=== PATIENT | male | born 1950 | race Two or more races ===

== ENCOUNTER 2022-05-16 06:55 | Day surgery (SDC) | payer OTHER ==
[~2022-05-16] VITALS: Ht 172.7 cm; Wt 104.3 kg
[~2022-05-16 06:55] MED LIST: ADULT LOW DOSE81 M1 PO; AMLODI PO; FARXIGA10 MG PO; LIPITOR40 MG PO; RAMIPRIL10 MG PO; TOPROL XL25 M1 PO
== END 2022-05-16 22:15 | disposition home or self-care (01) ==
LOC: CIR.AMB 06:55
PROVIDERS: ATTEND Colon & Rectal Surgery
DX: K60.3 Anal fistula (principal); K64.8 Other hemorrhoids; I10 Essential (primary) hypertension; E11.9 Type 2 diabetes mellitus without complications; Z79.82 Long term (current) use of aspirin; Z20.822 Contact with and (suspected) exposure to COVID-19

== ENCOUNTER 2022-05-16 07:49 | Emergency (ER) | payer OTHER ==
[~2022-05-16] VITALS: Ht 160 cm; Wt 77.1 kg
== END 2022-05-16 13:30 ==
LOC: ER 07:49
DX: R55 Syncope and collapse (principal); E86.0 Dehydration; Z20.822 Contact with and (suspected) exposure to COVID-19

== ENCOUNTER 2022-10-03 08:23 | Day surgery (SDC) | payer OTHER ==
[~2022-10-03] VITALS: Ht 172.7 cm; Wt 108.9 kg
== END 2022-10-03 16:30 | disposition home or self-care (01) ==
LOC: CIR.AMB 08:23
PROVIDERS: ATTEND Colon & Rectal Surgery
DX: K60.3 Anal fistula (principal); K64.2 Third degree hemorrhoids; K64.4 Residual hemorrhoidal skin tags; Z20.822 Contact with and (suspected) exposure to COVID-19; E78.5 Hyperlipidemia, unspecified; I10 Essential (primary) hypertension